=== PATIENT | female | born 1990 | race African-American/Black ===

== ENCOUNTER 2016-12-25 20:13 | Emergency (ER) | payer OTHER ==
[2016-12-25 20:21] VITALS: BP 127/82
[2016-12-25] MEDS ORDERED: CYCL10TA2 PO (21:28)
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
[2016-12-25] MEDS ORDERED: IBUPROFEN 800 MG TABLET. PO ONE ×2 (21:43→21:45)
[2016-12-25] MEDS ORDERED: CYCLOBENZAPRINE 10 MG TABLET. PO ONE (21:45)
== END 2016-12-25 21:49 | disposition home or self-care (01) ==
LOC: ER 20:13
DX: M54.89 Other dorsalgia (principal); M54.2 Cervicalgia; V43.52XA Car driver injured in collision with other type car in traffic accident, initial encounter; Y93.I9 Activity, other involving external motion; Y92.410 Unspecified street and highway as the place of occurrence of the external cause; Y99.8 Other external cause status
CPT/HCPCS: 99283

== ENCOUNTER 2017-08-07 18:22 | Emergency (ER) | payer SELFPAY ==
[~2017-08-07 18:22] MED LIST: CYCL10TA2 PO
[2017-08-07 19:08] VITALS: BP 126/76
--- NOTE | 2017-08-07 19:13 | PHYS DOC ---
Past Medical History Past Medical History: No Pertinent History Past Surgical History: No Surgical History Alcohol Use: None Drug Use: None Adult General Chief Complaint Chief Complaint: HAND PROBLEM HPI HPI Patient is a 27 year old female is instructed the emergency department stating that she has having left hand pain and discomfort. She states that she tripped over some items in her house today and caught herself with her hand she is complaining of pain along the first metacarpal area. She does have movement all of her fingers with slightly decreased range of motion to the first metacarpal due to pain and discomfort. She states she's taken Tylenol and was placed ice packs over the area with minimal relief. Patient is right hand dominant. Review of Systems Review of Systems Constitutional: Denies fever or chills [] Eyes: Denies change in visual acuity, redness, or eye pain [] HENT: Denies nasal congestion or sore throat [] Respiratory: Denies cough or shortness of breath [] Cardiovascular: No additional information not addressed in HPI [] GI: Denies abdominal pain, nausea, vomiting, bloody stools or diarrhea [] : Denies dysuria or hematuria [] Musculoskeletal: Denies back pain. C/o left hand pain Integument: Denies rash or skin lesions [] Neurologic: Denies headache, focal weakness or sensory changes [] Endocrine: Denies polyuria or polydipsia [] All other systems were reviewed and found to be within normal limits, except as documented in this note. Current Medications Current Medications Current Medications Medications (Trade) Dose Ordered Sig/Jesus Start Time Stop Time Status Last Admin Dose Admin Ibuprofen (Motrin) 800 mg 1X ONCE 08/07/17 19:30 08/07/17 19:31 Allergies Allergies Allergies Coded Allergies Type Severity Reaction Last Updated Verified No Known Drug Allergies 01/01/14 No Physical Exam Physical Exam Constitutional: Well developed, well nourished, no acute distress, non-toxic appearance. [] HENT: Normocephalic, atraumatic, bilateral external ears normal, oropharynx moist, no oral exudates, nose normal. [] Eyes: PERRLA, EOMI, conjunctiva normal, no discharge. [] Neck: Normal range of motion, no tenderness, supple, no stridor. [] Cardiovascular:Heart rate regular rhythm, no murmur [] Lungs & Thorax: Bilateral breath sounds clear to auscultation [] Skin: Warm, dry, no erythema, no rash. [] Extremities: Left 1st metacarpal tenderness, no cyanosis, no clubbing, ROM intact, no edema. No Bruising or discoloration noted along the first metacarpal area. Patient with good sensation noted Refill brisk less than 2 seconds. Neurologic: Alert and oriented X 3, normal motor function, normal sensory function, no focal deficits noted. [] Psychologic: Affect normal, judgement normal, mood normal. [] Current Patient Data Vital Signs Vital Signs Date Time Temp Pulse Resp B/P (MAP) Pulse Ox O2 Delivery O2 Flow Rate FiO2 08/07/17 19:08 98.9 80 16 100 Room Air 98.9 EKG EKG [] Radiology/Procedures Radiology/Procedures [] Course & Med Decision Making Course & Med Decision Making Pertinent Labs and Imaging studies reviewed. (See chart for details) Right Hand x-ray was negative per Dr. Monique. Patient will be placed in a thumb spica splint with recommendations to follow-up with orthopedic within the next week.Ice packs on 20 minutes and off 20 minutes several times a day, elevation as much as possible. Tylenol or ibuprofen for pain and discomfort. Keep the splint in place do not remove the splint until follow-up. Patient was provided with signs and symptoms return back to emergency department. I've spoken with the patient and/or caregivers. I've explained the patient's condition, diagnosis and treatment plan based on information available to me at this time. I've answered the patient's and/or caregivers questions and addressed any concerns. The patient and/or caregivers have a good understanding the patient's diagnosis, condition and treatment plan as can be expected at this point. Vital signs have been stabilized. The patient's condition is stable for discharge from the emergency department. The patient will pursue further outpatient evaluation with her primary care provider or other designated consulting physician as outlined in the discharge instructions. Patient and/or caregivers are agreeable to this plan of care and follow-up instructions have been explained in detail. The patient and/or caregivers have received these instructions in written format and expressed understanding of these discharge instructions. The patient and her caregivers are aware that if any significant change in condition or worsening of symptoms should prompt him to immediately return to this of the closest emergency department. If an emergent department is not readily available I would encourage him to call 911. Cherry Disclaimer Dragon Disclaimer This electronic medical record was generated, in whole or in part, using a voice recognition dictation system. Departure Departure Impression: Primary Impression: Sprain of hand, left Disposition: HOME, SELF-CARE Condition: STABLE Referrals: NO PCP (PCP) KATTY AJ MD Patient Instructions: Hand Injuries, [id number], Splint Care, [id number] Additional Instructions: Activity as tolerated. Tylenol or ibuprofen for pain and discomfort. Ice packs on 20 minutes off 20 minutes several times a day. Elevation as much as possible. Do not remove the splint until he follow-up with orthopedic. Follow-up with orthopedic within the next week. Return back to emergency department for signs and symptoms become worse. Splinting Splinting : Location: left thumb Hand-Made Type: orthoglass Splint: thumb spica Pre-Proc Neuro Vasc Exam: normal Post-Proc Neuro Vasc Exam: normal Problem Qualifiers Primary Impression: Sprain of hand, left Encounter type: initial encounter Qualified Codes: S63.92XA - Sprain of unspecified part of left wrist and hand, initial encounter DIEGO PETER [employer] ORDERLY Aug 07, 2017 19:13
[2017-08-07] MEDS ORDERED: IBUPROFEN 800 MG TABLET. PO ONE (19:30)
--- NOTE | 2017-08-08 08:26 | RAD ---
3 views left hand 08/07/2017 8:45 PM Indication: hand pain after injury Comparison: None Findings: There is no fracture or dislocation identified. Articular surfaces are uninterrupted. Soft tissues are unremarkable. Impression: No evidence of acute osseous abnormality
== END 2017-08-07 19:33 | disposition home or self-care (01) ==
LOC: ER 18:22
DX: S63.92XA Sprain of unspecified part of left wrist and hand, initial encounter (principal); W01.0XXA Fall on same level from slipping, tripping and stumbling without subsequent striking against object, initial encounter; Y93.89 Activity, other specified; Y99.8 Other external cause status; Y92.89 Other specified places as the place of occurrence of the external cause
CPT/HCPCS: 29125; 73130; 99284-25